=== PATIENT | female | born 1985 | race Caucasian/White ===

== ENCOUNTER 2020-07-26 05:50 | Inpatient (IN) | payer OTHER, MEDICAID ==
[~2020-07-26] VITALS: Ht 160 cm; Wt 69.0 kg
[~2020-07-26 05:50] MED LIST: DOCU-131 PO; HYDR1TAB13 PO; IBUP-1222 PO
[2020-07-26] MEDS ORDERED: NEWBORN KIT ONE (05:59)
[2020-07-26] MEDS ORDERED: LIDOCAINE 1%, 20ML ONE (05:59)
[2020-07-26] MEDS ORDERED: MISOPROSTOL 200 MCG TABLET ONE (05:59)
[2020-07-26] MEDS ORDERED: TERBUTALINE 1 MG/ML, 1ML SQ PRN (06:00)
[2020-07-26] MEDS ORDERED: OXYTOCIN 30U/ 0.9% NaCL 500ML 500 ML IV PRN (06:00)
[2020-07-26] MEDS ORDERED: CALCIUM CARBONATE 500 MG TAB.CHEW PO PRN ×2 (06:00→18:00)
[2020-07-26] MEDS ORDERED: D5%-LACTATED RINGERS 1,000 ML IV SCH (06:00)
[2020-07-26] MEDS ORDERED: TERBUTALINE 1 MG/ML, 1ML IVPush PRN (06:00)
[2020-07-26] MEDS ORDERED: FENTANYL PF 100 MCG/2ML IVPush PRN (06:00)
[2020-07-26] MEDS ORDERED: OXYTOCIN 30U/ 0.9% NaCL 500ML 500 ML IV ONE (06:00)
[2020-07-26] MEDS ORDERED: SODIUM CITRATE/CITRIC ACID 30 ML UDC PO PRN (06:00)
[2020-07-26] MEDS ORDERED: ONDANSETRON 2MG/ML, 2ML IVPush PRN (06:00)
[2020-07-26] MEDS ORDERED: FENTANYL PF 100 MCG/2ML IV PRN (06:00)
[2020-07-26] MEDS: LACTATED RINGERS 1,000 ML IV SCH ×2 (06:15→10:50)
[2020-07-26 06:17] LABS: BASOPHILS % (AUTO) 0 % (0-1); EOSINOPHILS % (AUTO) 1 % (1-7); LYMPHOCYTES % (AUTO) 18 % (22-44); MEAN CORPUSCULAR HEMOGLOBIN 31.4 pg (27.0-34.8); MEAN CORPUSCULAR HGB CONC 33.5 g/dL (32.4-35.8); MEAN PLATELET VOLUME 8.8 fL (7.4-10.4); MONOCYTES % (AUTO) 12 % (2-9); NEUTROPHILS % (AUTO) 69 % (42-75); PLATELET COUNT 198 x10^3/uL (130-400); RED BLOOD COUNT 4.44 x10^6/uL (3.82-5.3); RED CELL DISTRIBUTION WIDTH 13.3 % (9.6-15.2)
[2020-07-26 06:18] LABS: MD NO
[2020-07-26] MEDS ORDERED: LACTATED RINGERS 1,000 ML IVBOLUS PRN (09:30)
[2020-07-26] MEDS ORDERED: LACTATED RINGERS 1,000 ML IV SCH (09:30)
[2020-07-26] MEDS ORDERED: FENTANYL/BUPIV./NS/PF 250 ML EPIDCONT SCH (09:30)
[2020-07-26] MEDS ORDERED: NALOXONE 0.4 MG/ML, 1ML IVPush PRN (09:30)
[2020-07-26] MEDS ORDERED: BUPIVACAINE 0.25% ONE (11:17)
[2020-07-26] MEDS: EPHEDRINE 50 MG/ML, 1ML IVPush PRN ×2 (12:11→12:44)
[2020-07-26] MEDS ORDERED: ALUMINUM/MAG/SIMETHICONE 30 ML UDC ONE (12:30)
[2020-07-26] MEDS ORDERED: MISOPROSTOL 200 MCG TABLET PR PRN (18:00)
[2020-07-26] MEDS ORDERED: ONDANSETRON 2MG/ML, 2ML IV PRN (18:00)
[2020-07-26] MEDS ORDERED: OXYTOCIN 30U/ 0.9% NaCL 500ML 500 ML IV SCH (18:00)
[2020-07-26] MEDS ORDERED: DOCUSATE 100 MG CAPSULE PO PRN (18:00)
[2020-07-26] MEDS ORDERED: HYDROcodone/APAP 5/325 TABLET PO PRN ×2 (18:00)
[2020-07-26] MEDS ORDERED: BISACODYL 10 MG SUPP PR PRN (18:00)
[2020-07-26] MEDS ORDERED: SIMETHICONE 80 MG CHEW TAB PO PRN (18:00)
[2020-07-26] MEDS ORDERED: METOCLOPRAMIDE 5 MG/ML, 2ML IV PRN (18:00)
[2020-07-26] MEDS ORDERED: ACETAMINOPHEN 325 MG TABLET PO PRN ×2 (18:00)
[2020-07-26 20:57] VITALS: BP 105/69
[2020-07-26] MEDS: OXYTOCIN 30U/ 0.9% NaCL 500ML 500 ML IV SCH (21:00)
[2020-07-26] MEDS: IBUPROFEN 600 MG TABLET PO PRN (21:30)
[2020-07-27 00:30] VITALS: BP 102/63
[2020-07-27 02:30] VITALS: BP 107/69
[2020-07-27 03:13] LABS: BASOPHILS % (AUTO) 0 % (0-1); EOSINOPHILS % (AUTO) 1 % (1-7); LYMPHOCYTES % (AUTO) 11 % (22-44); MEAN CORPUSCULAR HEMOGLOBIN 31.3 pg (27.0-34.8); MEAN CORPUSCULAR HGB CONC 33.6 g/dL (32.4-35.8); MONOCYTES % (AUTO) 11 % (2-9); NEUTROPHILS % (AUTO) 78 % (42-75); PLATELET COUNT 185 x10^3/uL (130-400); RED BLOOD COUNT 3.96 x10^6/uL (3.82-5.3); RED CELL DISTRIBUTION WIDTH 13.5 % (9.6-15.2)
[2020-07-27 03:16] LABS: MD NO
[2020-07-27] MEDS: IBUPROFEN 600 MG TABLET PO PRN ×3 (03:59→16:34)
[2020-07-27] MEDS: OXYTOCIN 30U/ 0.9% NaCL 500ML 500 ML IV SCH ×2 (04:00→14:00)
[2020-07-27 04:05] VITALS: BP 100/63
[2020-07-27] MEDS ORDERED: OMNIPAQUE 350 MG/ML, 75ML BOTTLE ONE (07:33)
[2020-07-27 08:04] VITALS: BP 103/68
[2020-07-27] MEDS ORDERED: PRENATAL VIT/IRON/FA 1 EACH TABLET PO SCH (09:00)
[2020-07-27 12:02] VITALS: BP 111/72
[2020-07-27 16:37] VITALS: BP 105/70
== END 2020-07-27 19:30 | disposition home or self-care (01) | DRG 807 ==
LOC: LDIP 05:50 → 2NW 20:50
PROVIDERS: ADMIT Obstetrics & Gynecology; ATTEND Obstetrics & Gynecology
PROC: 10E0XZZ Delivery of Products of Conception, External Approach (ICD-10-PCS; principal; 2020-07-26)
PROC: 10907ZC Drainage of Amniotic Fluid, Therapeutic from Products of Conception, Via Natural or Artificial Opening (ICD-10-PCS; 2020-07-26)
PROC: 3E033VJ Introduction of Other Hormone into Peripheral Vein, Percutaneous Approach (ICD-10-PCS; 2020-07-26)
PROC: 3E0R3BZ Introduction of Anesthetic Agent into Spinal Canal, Percutaneous Approach (ICD-10-PCS; 2020-07-26)
PROC: 00HU33Z Insertion of Infusion Device into Spinal Canal, Percutaneous Approach (ICD-10-PCS; 2020-07-26)
DX: O66.0 Obstructed labor due to shoulder dystocia (principal); Z37.0 Single live birth; O12.04 Gestational edema, complicating childbirth; Z20.822 Contact with and (suspected) exposure to COVID-19; Z3A.39 39 weeks gestation of pregnancy; Z80.41 Family history of malignant neoplasm of ovary; Z83.3 Family history of diabetes mellitus; Z82.3 Family history of stroke; O09.523 Supervision of elderly multigravida, third trimester
CPT/HCPCS: 36415; 71275; 85025; 86592; 86850; 86900; 87635; G0378; Q9967; J2590; J3010; J7120